=== PATIENT | male | born 1965 | race Caucasian/White ===

== ENCOUNTER 2016-12-05 11:44 | Outpatient (CLI) | END 2016-12-05 11:45 | disposition home or self-care (01) | LOC: AMBL 11:44 | PROVIDERS: ATTEND Internal Medicine | DX: S01.01XA Laceration without foreign body of scalp, initial encounter (principal); M54.2 Cervicalgia; R42 Dizziness and giddiness; R55 Syncope and collapse; I95.9 Hypotension, unspecified; W22.8XXA Striking against or struck by other objects, initial encounter; W19.XXXA Unspecified fall, initial encounter ==

== ENCOUNTER 2017-01-25 18:55 | Outpatient (CLI) | END 2017-01-25 18:56 | disposition home or self-care (01) | LOC: AMBL 18:55 | PROVIDERS: ATTEND Internal Medicine Geriatric Medicine | DX: S00.03XA Contusion of scalp, initial encounter (principal); W01.198A Fall on same level from slipping, tripping and stumbling with subsequent striking against other object, initial encounter; Y92.512 Supermarket, store or market as the place of occurrence of the external cause ==

== ENCOUNTER 2022-12-21 16:33 | Observation (INO) ==
--- NOTE | 2022-12-21 16:51 | ED.PDOC ---
General ED Provider: Dr. ESTELA REED DO Chief Complaint: Diabetes Stated Complaint: Patient is a 57 yo M here for medicaiont noncompliance and nausea Patietn arrives afebrile and vitally stable by POV with daughter SHe and he report he is noncompliant with insulin regiumen Daughter reports this happens often He reports nausea without chest or abdominal pain He has a PMHX of IDDM2 x 4 years, CHF. He is pleasant to speak with Amenable to labs and treatment THere home glucometer read too hih to count so they came in Time Seen by Provider: 12/21/22 16:39 Primary Care Provider: APURVA DIAS Nursing and Triage Documentation Reviewed and Agree: Yes Does patient meet sepsis criteria?: No System Inflammatory Response Syndrome: Not Applicable Sepsis Protocol: For patient's 13 years and over: Temp is 96.8 and below OR 101 and greater Pulse >90 BPM Resp >20/minute Acutely Altered Mental Status Are patient's symptoms suggestive of a new infection, such as: -Pneumonia -Skin, Soft Tissue -Endocarditis -UTI -Bone, Joint Infection -Implantable Device -Acute Abdominal Infection -Wound Infection -Meningitis -Blood Stream Catheter Infection -Unknown Review of Systems Review Of Systems Constitutional: Denies Diaphoresis or Malaise Eyes: Denies Blindness or Drainage Ears, Nose, Mouth, Throat: Denies Ear pain or Nose pain Respiratory: Denies Cough or Shortness of Breath Cardiac: Denies Chest pain or Lightheadedness GI: Reports Nausea; Denies Abdominal pain, Diarrhea or Vomiting : Denies Burning or Discharge Musculoskeletal: Denies Back pain or Joint pain Skin: Denies Bruising or Lesions Neurological: Denies Anxiety or Depressed Endocrine: Denies Excessive sweating or Flushing Hematologic/Lymphatic: Reports No symptoms All Other Systems: Reviewed and Negative Physical Exam Physical Exam Appearance: Reports Well-appearing, Well-nourished and Obese Ill-appearing: Not Applicable Pain Distress: Not Applicable Eyes: Reports BUCK, EOMI and Conjunctiva clear ENT: Reports Ears normal, Nose normal and Oropharynx normal Neck: Supple Respiratory: Reports Breath sounds clear Cardiovascular: Reports RRR, Pulses normal and No rub GI/: Reports Soft, Nontender and Other (Negative roberts/mcburney/no cva ttp, no fluid wave) Musculoskeletal: Reports Normal strength and ROM intact Skin: Reports Warm and Dry Neurological: Reports Sensation intact and Motor intact Psychiatric: Reports Affect appropriate and Mood appropriate Critical Care Note Critical Care Note Total Critical Care Time (mins): 0 Course Course 12/21/22 17:11 12/21/22 17:11 Orders, Labs, Meds: Lab Review 12/21/22 12/21/22 17:11 17:20 WBC 10.87 H RBC 4.74 Hgb 12.0 L Hct 38.0 L MCV 80.2 MCH 25.3 L MCHC 31.6 L RDW Coeff of Bhavna 18.2 H Plt Count 434 Immature Gran % (Auto) 0.3 Neut % (Auto) 49.1 Lymph % (Auto) 35.2 Bates % (Auto) 13.4 H Eos % (Auto) 1.4 Baso % (Auto) 0.6 Neut # (Auto) 5.3 Lymph # (Auto) 3.8 H Bates # (Auto) 1.5 Eos # (Auto) 0.2 Baso # (Auto) 0.1 Immature Gran # (Auto) 0.0 VBG pH 7.35 VBG pCO2 43 VBG pO2 49 H VBG HCO3 23.7 VBG O2 Saturation 82.0 H Sodium 131.3 L Potassium 4.51 Chloride 93.1 L Carbon Dioxide 23.0 Anion Gap 19.71 BUN 89.6 H* Creatinine 2.64 H Estimated GFR (MDRD) 25.00 BUN/Creatinine Ratio 33.93 Glucose 589.0 H* Lactic Acid 3.53 H Calcium 9.63 Total Bilirubin 0.70 AST 78.6 H ALT 48.2 Alkaline Phosphatase 370.8 H NT-Pro-B Natriuret Pep 812 H Total Protein 10.49 H Albumin 4.53 Globulin 5.96 Albumin/Globulin Ratio 0.76 Lipase 92.8 Urine Color Yellow Urine Clarity Clear Urine pH 5.5 Ur Specific [place] 1.010 Urine Protein Negative Urine Glucose (UA) 3+ H Urine Ketones Negative Urine Blood Negative Urine Nitrite Negative Urine Bilirubin Negative Urine Urobilinogen 0.2 Ur Leukocyte Esterase Negative Ur Squamous Epith Cells 2-5 Acetone, Qual None Orders Category Date Time Status OBSERVATION [PLACE PATIENT OBSERVATION] .TO MEDSURG ADMISSION 12/21/22 18:26 Ordered (NON-MONITORED BED) VBG DRAW REQUEST Stat CARDIO 12/21/22 16:44 Completed ACCUCHECK (ED) [ED ACCUCHECK ASSESSMENT] Q1HR EMERGENCY 12/21/22 18:25 Active ACETONE, QUALITATIVE Stat LAB 12/21/22 17:11 Completed CBC W/ AUTO DIFF Stat LAB 12/21/22 17:11 Completed COMPREHENSIVE METABOLIC PANEL Stat LAB 12/21/22 17:11 Completed FREE T4 (FREE THYROXINE) Stat LAB 12/21/22 17:11 Received LACTIC ACID Stat LAB 12/21/22 17:11 Completed LIPASE Stat LAB 12/21/22 17:11 Completed PROBNP ED [NT-PROBNP(ED)] Stat LAB 12/21/22 17:11 Completed URINALYSIS C & S IF INDICATED Stat LAB 12/21/22 17:20 Completed VBG [VENOUS BLOOD GAS] Stat LAB 12/21/22 17:20 Completed Insulin Regular, Human [Humulin R] Meds 12/21/22 18:11 Discontinued 9 unit IVP ONCE STA Sodium Chloride 0.9% [Sodium Chloride] 1,000 ml Meds 12/21/22 18:11 Active IV BOLUS Medications Generic Name Dose Route Start Last Admin Trade Name Freq PRN Reason Stop Dose Admin Sodium Chloride 1,000 mls @ 1,000 mls/hr 12/21/22 18:11 12/21/22 18:21 Sodium Chloride IV 12/21/22 19:10 1,000 mls/hr BOLUS STA Administration Discontinued Medications Generic Name Dose Route Start Last Admin Trade Name Freq PRN Reason Stop Dose Admin Insulin Human Regular 9 unit 12/21/22 18:11 12/21/22 18:19 Insulin Regular, Human 100 Unit/Ml (3ml) Vial 0.1 unit/kg (9 unit) 12/21/22 18:12 9 unit IVP Administration ONCE STA Vital Signs: Temp Pulse Resp BP Pulse Ox 12/21/22 16:45 97.7 F 77 18 122/74 98 MDM: Patient is a 57 yo M here for insulin noncompliance and nausea Patient afebrile and vitally stable Hx form patient and daughter chart review by me Exam reassuring 3+ labs and no images reviewed by me He has sugar 550+, VBG with pH 7.35 bun creatinine 89/2.64 was 80/2.6 last week at [facility], operated by [facility] Family requesting observation to address sugar/dehydration - they have str uggled at home WDX: hyperglycemia, elevated creatinine, nausea, anemia discomfort acute condition moderate complexity DDX: I considered DKA, shock, pancreatitis but these are less likely SDOH: Patient insured with PCP support Patient amenable to admission Passed PO and ambulation challenge 9 units of insulin and 500 ML NS bolus here Consults to Hospitalist team agree with observation Patient follows with [facility] team for future planning but could not remember the physicians name Discharge Plan Discharge Patient Disposition: PLACED OBSERVATION Discharge Problem: Acute dehydration, Acute hyperglycemia, Elevated lactic acid level Did you review [place] [employer] for ALL controlled substances?: Not Applicable ED Provider: ESTELA REED Physician Progress Note: []
[2022-12-21 17:22] LABS: BASOPHILS # (AUTO) 0.1 K/uL (0-0.2); BASOPHILS % (AUTO) 0.6 % (0.0-3.0); EOSINOPHILS # (AUTO) 0.2 K/ul (0.0-0.7); EOSINOPHILS % (AUTO) 1.4 % (0.0-7.0); IMMATURE GRANULOCYTE % (AUTO) 0.3 % (0.0-5.0); LYMPHOCYTES # (AUTO) 3.8 K/uL (0.60-3.4); LYMPHOCYTES % (AUTO) 35.2 (10.0-50.0); MEAN CORPUSCULAR HEMOGLOBIN 25.3 pg (27.0-31.0); MEAN CORPUSCULAR HGB CONC 31.6 (31.8-35.4); MEAN CORPUSCULAR VOLUME 80.2 fl (80.0-94.0); MONOCYTES # (AUTO) 1.5 K/uL (0.4-2.0); MONOCYTES % (AUTO) 13.4 (0-10); NEUTROPHILS # (AUTO) 5.3 K/ul (2.0-6.9); NEUTROPHILS % (AUTO) 49.1 % (42.2-75.2); PLATELET COUNT 434 10^3/uL (140-440); RDW COEFFICIENT OF VARIATION 18.2 % (11.6-14.8); RED BLOOD COUNT 4.74 10^6/ul (4.70-6.10); WHITE BLOOD COUNT 10.87 K/ul (4.2-10.2)
[2022-12-21 17:27] LABS: VBG HCO3 23.7 (22-26); VBG PH 7.35 (7.30-7.40)
[2022-12-21 17:36] LABS: ALANINE AMINOTRANSFERASE 48.2 U/L (0-50); ALBUMIN 4.53 g/dL (3.5-5.0); ALKALINE PHOSPHATASE 370.8 U/L (56-119); ASPARTATE AMINO TRANSFERASE 78.6 U/L (17-59); BILIRUBIN,TOTAL 0.7 mg/dL (0.2-1.3); CALCIUM 9.63 mg/dL (8.4-10.2); CHLORIDE 93.1 mmol/L (98-107); CREATININE 2.64 mg/dL (0.60-1.10); LIPASE 92.8 U/L (23-300); POTASSIUM 4.51 mmol/L (3.5-5.1); SODIUM 131.3 mmol/L (134.5-145); TOTAL PROTEIN 10.49 g/dL (6.3-8.2)
[2022-12-21 17:41] LABS: BILIRUBIN,URINE Negative (NEGATIVE); CLARITY,URINE Clear (CLEAR); COLOR,URINE Yellow (YELLOW); KETONES,URINE Negative (NEGATIVE); LEUKOCYTE ESTERASE ,URINE Negative (NEGATIVE); NITRITE,URINE Negative (NEGATIVE); PH,URINE 5.5 (5-9); PROTEIN,URINE Negative (NEGATIVE); URINE, BLOOD Negative (NEGATIVE); UROBILINOGEN,URINE 0.2 (0.2)
[2022-12-21 17:47] LABS: GLUCOSE, URINE (UA) 3+ (NEGATIVE)
[2022-12-21 18:00] LABS: BLOOD UREA NITROGEN 89.6 mg/dL (9-20)
[2022-12-21] MEDS ORDERED: SODIUM CHLORIDE 1,000 ML IV STA (18:11)
[2022-12-21] MEDS ORDERED: HUMULIN R IVP STA (18:11)
[2022-12-21] MEDS ORDERED: ZOFRAN 4 MG/2 ML IVP STA (18:43)
[2022-12-21] MEDS ORDERED: TYLENOL PO PRN (19:17)
[2022-12-21] MEDS ORDERED: ZOFRAN 4 MG/2 ML IVP PRN (19:21)
[2022-12-21 20:57] VITALS: BMI 29.0
[2022-12-21] MEDS: ZOLOFT PO SCH (21:00)
[2022-12-21] MEDS: XIFAXAN PO SCH (22:37)
[2022-12-21] MEDS: LACTULOSE PO SCH (22:38)
[2022-12-21] MEDS: LIPITOR PO SCH (22:38)
[2022-12-21] MEDS ORDERED: BUMEX PO SCH (23:00)
[2022-12-22 05:08] LABS: BASOPHILS # (AUTO) 0.1 K/uL (0-0.2); BASOPHILS % (AUTO) 0.4 % (0.0-3.0); EOSINOPHILS # (AUTO) 0.3 K/ul (0.0-0.7); EOSINOPHILS % (AUTO) 1.8 % (0.0-7.0); IMMATURE GRANULOCYTE % (AUTO) 0.2 % (0.0-5.0); LYMPHOCYTES # (AUTO) 5.4 K/uL (0.60-3.4); LYMPHOCYTES % (AUTO) 38.7 (10.0-50.0); MEAN CORPUSCULAR HEMOGLOBIN 24.9 pg (27.0-31.0); MEAN CORPUSCULAR HGB CONC 31.6 (31.8-35.4); MONOCYTES # (AUTO) 1.9 K/uL (0.4-2.0); MONOCYTES % (AUTO) 13.8 (0-10); NEUTROPHILS # (AUTO) 6.3 K/ul (2.0-6.9); NEUTROPHILS % (AUTO) 45.1 % (42.2-75.2); PLATELET COUNT 425 10^3/uL (140-440); RDW COEFFICIENT OF VARIATION 17.9 % (11.6-14.8); RED BLOOD COUNT 4.81 10^6/ul (4.70-6.10); WHITE BLOOD COUNT 14.02 K/ul (4.2-10.2)
[2022-12-22 05:21] LABS: ALANINE AMINOTRANSFERASE 45.8 U/L (0-50); ALBUMIN 4.43 g/dL (3.5-5.0); ALKALINE PHOSPHATASE 333.7 U/L (56-119); ASPARTATE AMINO TRANSFERASE 91.5 U/L (17-59); BILIRUBIN,TOTAL 0.99 mg/dL (0.2-1.3); CALCIUM 9.64 mg/dL (8.4-10.2); CARBON DIOXIDE 26.3 mmol/L (22-30.0); CHLORIDE 100.5 mmol/L (98-107); CREATININE 2.54 mg/dL (0.60-1.10); GLUCOSE 221.3 mg/dL (74-106); POTASSIUM 4.53 mmol/L (3.5-5.1); SODIUM 137.3 mmol/L (134.5-145); TOTAL PROTEIN 10.21 g/dL (6.3-8.2)
[2022-12-22 05:32] LABS: BLOOD UREA NITROGEN 91.4 mg/dL (9-20)
[2022-12-22] MEDS: PROTONIX PO SCH (05:46)
[2022-12-22] MEDS: HUMULIN R SUBCUT PRN ×3 (06:05→18:54)
[2022-12-22] MEDS ORDERED: SYNTHROID PO SCH (06:30)
[2022-12-22] MEDS ORDERED: BUMEX PO SCH (06:30)
[2022-12-22] MEDS ORDERED: ALDACTONE PO SCH (09:00)
[2022-12-22] MEDS: ASPIRIN CHEWABLE PO SCH (09:04)
[2022-12-22] MEDS: ALDACTONE PO SCH (09:04)
[2022-12-22] MEDS: XIFAXAN PO SCH ×2 (09:04→20:26)
[2022-12-22] MEDS: CREON DR 12,000 UNITS CAPSULE PO SCH ×4 (09:04→20:58)
[2022-12-22] MEDS: JARDIANCE PO SCH (09:05)
[2022-12-22] MEDS: TOPROL XL PO SCH (09:05)
[2022-12-22] MEDS: LACTULOSE PO SCH ×2 (09:05→20:26)
--- NOTE | 2022-12-22 10:35 | PCM ---
Date of Service Date Seen by Provider: 12/22/22 Time Seen by Provider: 08:45 Admit Day/Time Admission Date: 12/21/22 Reason for Admission Chief Complaint: HYPERGLYCEMIA Hospital Provider Hospital Provider: ZULLY PECK, [facility] Primary Care Physician Primary Care Physician: APURVA DIAS History of Present Illness History of Present Illness: 57 yo male presented to the ER with family with hyperglycemia. Family reports that they were checking patient's blood sugar and he was reading high. Upon arrival to the ER, blood glucose was 589. He was not found to be in DKA or HHS. He was given 9 units of insulin and brought him down to the 250s. He was admitted to observation for blood glucose management. Patient has a long standing history of liver failure and chronic kidney disease. He follows with specialists at [facility]. He is on transplant lists for his liver and kidneys but family reports he has not likely a candidate due to his other histories of CHF and diabetes. Sister in room reports that over the last couple weeks he has become more weak and falling asleep frequently. He currently administers all of his own medications and lives with his brother and great nephew. Sister reports concern of requiring more care than the family is capable of giving him and are aware that now he will need closer monitoring with his medications. States that he takes lactulose for the ammonia retention due to the liver failure and he does not take it appropriately and ends up lethargic and confused. Currently his ammonia is 46.89 which she reports is the best it has been in awhile but he stays anywhere from 40s-60s. At this time, patient is oriented to person and time. Disoriented to place and situation. Able to follow commands and answer some questions. States he feels more tired than he normally does. Denies any pain or complaints at this time. Case Discussed With Case Discussed With: Patient's case was discussed with the ER Physicians, Dr. Leary. [facility] Medical History (Updated 12/22/22 @ 10:27 by ZULLY PECK) CHF (congestive heart failure) I50.9 - Heart failure, unspecified (ICD-10) Chronic kidney disease N18.9 - Chronic kidney disease, unspecified (ICD-10) Confusion R41.0 - Disorientation, unspecified (ICD-10) Coronary artery disease I25.10 - Atherosclerotic heart disease of [place] coronary artery without angina pectoris (ICD-10) Depressed F32.A - Depression, unspecified (ICD-10) Diabetes E11.9 - Type 2 diabetes mellitus without complications (ICD-10) Hypercholesteremia E78.00 - Pure hypercholesterolemia, unspecified (ICD-10) Liver failure K72.90 - Hepatic failure, unspecified without coma (ICD-10) Nausea R11.0 - Nausea (ICD-10) Pancreatitis K85.90 - Acute pancreatitis without necrosis or infection, unspecified (ICD- 10) Surgical History (Updated 12/22/22 @ 10:28 by ZULLY PECK) Hx of CABG Z95.1 - Presence of aortocoronary bypass graft (ICD-10) Social History Smoking and tobacco status: Unknown if ever smoked Alcohol intake: unknown Allergies Allergies Allergy/AdvReac Type Severity Reaction Status Date / Time albumin colloid, human AdvReac Verified 12/21/22 17:06 Current Medications Home Medications aspirin 81 mg tablet,delayed release 81 mg PO QDAY 12/21/22 [History Confirmed 12/21/22 Last Taken Unknown] atorvastatin 10 mg tablet 5 mg PO .QD 12/21/22 [History Confirmed 12/21/22 Last Taken Unknown] bumetanide 1 mg tablet 1 mg PO .COMPLEX 12/21/22 [History Confirmed 12/21/22 Last Taken Unknown] bumetanide 1 mg tablet 1 mg PO .QD 12/21/22 [History Confirmed 12/21/22 Last Taken Unknown] empagliflozin 10 mg tablet (Jardiance) 10 mg PO .QD 12/21/22 [History Confirmed 12/21/22 Last Taken Unknown] insulin glargine 100 unit/mL (3 mL) subcutaneous pen (Basaglar KwikPen U-100 Insulin) 40 unit subcut QAM 12/21/22 [History Confirmed 12/21/22 Last Taken Unknown] insulin glargine-yfgn 100 unit/mL (3 mL) subcutaneous pen 15 unit subcut TID 12/21/22 [History Confirmed 12/21/22 Last Taken Unknown] lactulose 10 gram/15 mL oral solution 45 ml PO BID 12/21/22 [History Confirmed 12/21/22 Last Taken Unknown] levothyroxine 125 mcg tablet 250 mcg PO .QD 12/21/22 [History Confirmed 12/21/22 Last Taken Unknown] wmxgtm-wkkcmuxb-gvgmezp 36,000-114,000-180,000 unit capsule,delay rel 1 cap PO QID 12/21/22 [History Confirmed 12/21/22 Last Taken Unknown] metoprolol succinate 25 mg tablet,extended release 24 hr 25 mg PO .QD 12/21/22 [History Confirmed 12/21/22 Last Taken Unknown] pantoprazole 40 mg tablet,delayed release 40 mg PO .QD 12/21/22 [History Confirmed 12/21/22 Last Taken Unknown] rifaximin 550 mg tablet (Xifaxan) 550 mg PO BID 12/21/22 [History Confirmed 12/21/22 Last Taken Unknown] sertraline 50 mg tablet 50 mg PO QHS 12/21/22 [History Confirmed 12/21/22 Last Taken Unknown] spironolactone 25 mg tablet 12.5 mg PO .QD 12/21/22 [History Confirmed 12/21/22 Last Taken Unknown] Home Acetaminophen (Acetaminophen 325 Mg Tablet) 650 mg PO Q4H PRN PRN Reason: Mild Pain Aspirin (Aspirin 81 Mg Tab.Chew) 81 mg PO DAILYWM [facility] Last Admin: 12/22/22 09:04 Dose: 81 mg Atorvastatin Calcium (Atorvastatin Calcium 10 Mg Tablet) 5 mg PO BEDTIME [facility] Last Admin: 12/21/22 22:38 Dose: 5 mg Bumetanide (Bumetanide 1 Mg Tablet) 1 mg PO 3 TIMES PER WEEK [facility] Empagliflozin (Empagliflozin 10 Mg Tablet) 10 mg PO DAILY [facility] Last Admin: 12/22/22 09:05 Dose: 10 mg Insulin Human Regular (Insulin Regular, Human 100 Unit/Ml (3ml) Vial) 0 unit SUBCUT PRN PRN; Protocol PRN Reason: Hyperglycemia Last Admin: 12/22/22 10:48 Dose: 8 unit Lactulose (Lactulose 20 Gm/30 Ml Cup) 30 gm PO Q12HR [facility] Last Admin: 12/22/22 09:05 Dose: 30 gm Levothyroxine Sodium (Levothyroxine Sodium 100 Mcg Tablet) 100 mcg PO QDAC [facility] Levothyroxine Sodium (Levothyroxine Sodium 25 Mcg Tablet) 25 mcg PO QDAC [facility] Metoprolol Succinate (Metoprolol Succinate 25 Mg Tab.Er.24h) 25 mg PO DAILY [facility] Last Admin: 12/22/22 09:05 Dose: 25 mg Ondansetron HCl (Ondansetron Hcl/Pf 4 Mg/2 Ml Sdv) 4 mg IVP Q6H PRN PRN Reason: Nausea / Vomiting Pancrelipase (Lipase 12k/Protease 38k/Amylase 60k Capsule) 3 cap PO QID [facility] Last Admin: 12/22/22 09:04 Dose: 3 cap Pantoprazole Sodium (Pantoprazole Sodium 40 Mg Tablet.Dr) 40 mg PO QDAC [facility] Last Admin: 12/22/22 05:46 Dose: 40 mg Rifaximin (Rifaximin 550 Mg Tablet) 550 mg PO BID [facility] Stop: 12/24/22 21:59 Last Admin: 12/22/22 09:04 Dose: 550 mg Sertraline HCl (Sertraline Hcl 50 Mg Tablet) 50 mg PO BEDTIME [facility] Last Admin: 12/21/22 21:00 Dose: 50 mg Sodium Chloride (0.9% Sodium Chloride 10 Ml Disp.Syrin) 1 syr IVF Q8HR [facility] Last Admin: 12/22/22 05:02 Dose: 1 syr Spironolactone (Spironolactone 25 Mg Tablet) 12.5 mg PO DAILY [facility] Last Admin: 12/22/22 09:04 Dose: 12.5 mg Discontinued Medications Bumetanide (Bumetanide 1 Mg Tablet) 1 mg PO QDAC [facility] Bumetanide (Bumetanide 1 Mg Tablet) 1 mg PO .COMPLEX [facility] Sodium Chloride (Sodium Chloride) 1,000 mls @ 1,000 mls/hr IV BOLUS STA Stop: 12/21/22 19:10 Last Admin: 12/21/22 18:21 Dose: 1,000 mls/hr Insulin Human Regular (Insulin Regular, Human 100 Unit/Ml (3ml) Vial) 9 unit 0.1 unit/kg (9 unit) IVP ONCE STA Stop: 12/21/22 18:12 Last Admin: 12/21/22 18:19 Dose: 9 unit Levothyroxine Sodium (Levothyroxine Sodium 112 Mcg Tablet) 125 mcg PO QDAC [facility] Last Admin: 12/22/22 05:47 Dose: 125 mcg Ondansetron HCl (Ondansetron Hcl/Pf 4 Mg/2 Ml Sdv) 4 mg IVP ONCE STA Stop: 12/21/22 18:44 Last Admin: 12/21/22 18:46 Dose: 4 mg Spironolactone (Spironolactone 25 Mg Tablet) 25 mg PO DAILY [facility] Review of Systems Constitutional: Reports Fatigue Head: Reports Normocephalic and Atraumatic Eyes: Reports No symptoms Ears: Reports No symptoms Nose: Reports No symptoms Mouth: Reports No symptoms Throat: Reports No symptoms Cardiovascular: Reports No symptoms Respiratory: Reports No symptoms Gastrointestinal: Reports No symptoms Genitourinary: Reports No Symptoms Musculoskeletal: Reports No symptoms Endocrine: Reports No symptoms Hematology: Reports No symptoms Immunology: Reports No symptoms Neurological: Reports No symptoms Psychiatric: Reports No symptoms Physical examination Most Recent Vital Signs: Most Recent Vital Signs Temperature 98.0 F 12/22/22 05:11 Temperature Source Oral 12/22/22 05:11 Temperature Source Oral 12/21/22 16:45 Pulse Rate 78 12/22/22 08:00 Respiratory Rate 16 12/22/22 08:00 Blood Pressure 125/75 12/22/22 05:11 Blood Pressure Mean 91 12/22/22 05:11 Blood Pressure Left Arm 116/75 12/21/22 20:31 Blood Pressure Location Left Arm 12/22/22 05:11 Blood Pressure Position Supine 12/22/22 05:11 O2 Sat by Pulse Oximetry 99 12/22/22 05:11 Oxygen Delivery Method Room Air 12/22/22 08:00 Height 5 ft 10 in 12/21/22 20:31 Weight 202 lb 12/21/22 20:31 Appearance: Positive No Apparent Distress and Ill-Appearing Skin: Positive Jaundice and Warm HEENT: Positive Normocephalic, Oral Mucous Moist and PERRLA Neck: Positive Supple and Midline Trachea Chest/Lungs: Positive Symmetrical With Equal Breath Sounds, Clear to Auscultation Bilaterally and Good Air Movement all 4 Lung Manrique Heart: Positive RRR and Pulses Normal GI/: Positive Soft, Nontender, Bowel Sounds Normal and No Distention Musculoskeletal: Positive Not Examined Extremities: Positive Intact Peripheral Pulses, Stable Joints Without Laxity and Good ROM in All Joints Neurological: Positive Sensation Intact, Motor intact, Alert, Oriented and Other (generalized weakness) Psychiatric: Negative Oriented x4 (oriented x2 ) Labs This Visit Labs This Visit: Labs This Visit 12/21/22 12/21/22 12/21/22 17:11 17:20 19:40 WBC 10.87 H RBC 4.74 Hgb 12.0 L Hct 38.0 L MCV 80.2 MCH 25.3 L MCHC 31.6 L RDW Coeff of Bhavna 18.2 H Plt Count 434 Immature Gran % (Auto) 0.3 Neut % (Auto) 49.1 Lymph % (Auto) 35.2 Mcintosh % (Auto) 13.4 H Eos % (Auto) 1.4 Baso % (Auto) 0.6 Neut # (Auto) 5.3 Lymph # (Auto) 3.8 H Mcintosh # (Auto) 1.5 Eos # (Auto) 0.2 Baso # (Auto) 0.1 Immature Gran # (Auto) 0.0 VBG pH 7.35 VBG pCO2 43 VBG pO2 49 H VBG HCO3 23.7 VBG O2 Saturation 82.0 H Sodium 131.3 L Potassium 4.51 Chloride 93.1 L Carbon Dioxide 23.0 Anion Gap 19.71 BUN 89.6 H* Creatinine 2.64 H Estimated GFR (MDRD) 25.00 BUN/Creatinine Ratio 33.93 Glucose 589.0 H* Hemoglobin A1c 11.95 H Lactic Acid 3.53 H 4.44 H Calcium 9.63 Total Bilirubin 0.70 AST 78.6 H ALT 48.2 Alkaline Phosphatase 370.8 H Ammonia NT-Pro-B Natriuret Pep 812 H Total Protein 10.49 H Albumin 4.53 Globulin 5.96 Albumin/Globulin Ratio 0.76 Lipase 92.8 TSH 1.210 Free T4 2.29 H Urine Color Yellow Urine Clarity Clear Urine pH 5.5 Ur Specific [place] 1.010 Urine Protein Negative Urine Glucose (UA) 3+ H Urine Ketones Negative Urine Blood Negative Urine Nitrite Negative Urine Bilirubin Negative Urine Urobilinogen 0.2 Ur Leukocyte Esterase Negative Ur Squamous Epith Cells 2-5 Acetone, Qual None 12/22/22 12/22/22 04:44 07:40 WBC 14.02 H RBC 4.81 Hgb 12.0 L Hct 38.0 L MCV 79.0 L MCH 24.9 L MCHC 31.6 L RDW Coeff of Bhavna 17.9 H Plt Count 425 Immature Gran % (Auto) 0.2 Neut % (Auto) 45.1 Lymph % (Auto) 38.7 Mcintosh % (Auto) 13.8 H Eos % (Auto) 1.8 Baso % (Auto) 0.4 Neut # (Auto) 6.3 Lymph # (Auto) 5.4 H Mcintosh # (Auto) 1.9 Eos # (Auto) 0.3 Baso # (Auto) 0.1 Immature Gran # (Auto) 0.0 VBG pH VBG pCO2 VBG pO2 VBG HCO3 VBG O2 Saturation Sodium 137.3 Potassium 4.53 Chloride 100.5 Carbon Dioxide 26.3 Anion Gap 15.03 BUN 91.4 H* Creatinine 2.54 H Estimated GFR (MDRD) 26.00 BUN/Creatinine Ratio 35.98 Glucose 221.3 H D Hemoglobin A1c Lactic Acid Calcium 9.64 Total Bilirubin 0.99 AST 91.5 H ALT 45.8 Alkaline Phosphatase 333.7 H D Ammonia 46.8 H NT-Pro-B Natriuret Pep Total Protein 10.21 H Albumin 4.43 Globulin 5.78 Albumin/Globulin Ratio 0.76 Lipase TSH Free T4 Urine Color Urine Clarity Urine pH Ur Specific [place] Urine Protein Urine Glucose (UA) Urine Ketones Urine Blood Urine Nitrite Urine Bilirubin Urine Urobilinogen Ur Leukocyte Esterase Ur Squamous Epith Cells Acetone, Qual Imaging Imaging: None Review Statement Review Statement: I have independently reviewed and interpreted the labs/EKGs/imaging that were ordered by the ER provider. I have reviewed all outside records that are available currently in our EMR including imaging/notes/labs from previous visits. Plan Plan: 1. Hyperglycemia in setting of Type 2 Diabetes Mellitus - resolved, due to patient unable to administer appropriate dosing; q4H blood sugars throughout the night now accuchecks ACHS with ssi, continue home long acting insulin 2. CHF - chronic, does not appear in exacerbation, continue home medications, follows with CHF clinic 3. Chronic Kidney Disease - BUN/Creat at baseline, sees Nephrology at [facility], on transplant list and discussing dialysis, avoid nephrotoxins and hypotension if able 4. Liver Failure - chronic, ammonia level at baseline, continue lactulose 5. Hyponatremia - likely chronic due to CKD and CHF, monitor Discussed plan of care and any home needs with sister today. Hospice was discussed as well as home health. She plans to discuss with family what discharge plan is whether care is going to be continued or if they are going to do Hospice. Will have answers tomorrow and would like to talk with case management/social work. DVT Prophylaxis: HEATHER Time Spent: Greater than 80 minutes spent with patient, 50% of the time spent with this patient was devoted to counseling and coordination of care. Advanced Care Plannin minutes spent discussing advance care planning. Disposition: Admit to: Med/Surg Observation Full Code Discussed Plan of Care with Dr. Ted Renteria. Medications Medication Orders: Medications Ordered Category Date Time Status 0.9 % Sodium Chloride [Saline Flush] Meds 12/22/22 05:00 Active 1 syr IVF Q8HR Acetaminophen [Tylenol] Meds 12/21/22 19:17 Active 650 mg PO Q4H PRN Aspirin [Aspirin Chewable] Meds 12/22/22 08:30 Active 81 mg PO DAILYWM Atorvastatin Calcium [Lipitor] Meds 12/21/22 22:00 Active 5 mg PO BEDTIME Bumetanide [Bumex] Meds 12/23/22 06:30 Active 1 mg PO 3 TIMES PER WEEK Empaglifozin [Jardiance] Meds 12/22/22 09:00 Active 10 mg PO DAILY Insulin Regular, Human [Humulin R] Meds 12/21/22 19:17 Active See Protocol SUBCUT PRN PRN Lactulose Meds 12/21/22 22:00 Active 30 gm PO Q12HR Levothyroxine Sodium [Synthroid] Meds 12/23/22 06:30 Active 100 mcg PO QDAC Levothyroxine Sodium [Synthroid] Meds 12/23/22 06:30 Active 25 mcg PO QDAC Lipase/Protease/Amylase [Ino Frances 12,000 Units Capsule] Meds 12/22/22 09:00 Active 3 cap PO QID Metoprolol Succinate [Toprol Xl] Meds 12/22/22 09:00 Active 25 mg PO DAILY Ondansetron HCl/Pf [Zofran 4 mg/2 ml] Meds 12/21/22 19:21 Active 4 mg IVP Q6H PRN Pantoprazole Sodium [Protonix] Meds 12/22/22 06:30 Active 40 mg PO QDAC Rifaximin [Xifaxan] Meds 12/21/22 22:00 Active 550 mg PO BID Sertraline HCl [Zoloft] Meds 12/21/22 21:00 Active 50 mg PO BEDTIME Spironolactone [Aldactone] Meds 12/22/22 09:00 Active 12.5 mg PO DAILY
[2022-12-22] MEDS ORDERED: HUMULIN R SUBCUT ONE (14:11)
[2022-12-22] MEDS: LIPITOR PO SCH (20:26)
[2022-12-22] MEDS: ZOLOFT PO SCH (20:26)
[2022-12-22] MEDS ORDERED: HUMULIN R IVP STA (20:59)
[2022-12-22 21:26] LABS: CALCIUM 9.15 mg/dL (8.4-10.2); CARBON DIOXIDE 27.2 mmol/L (22-30.0); CREATININE 2.57 mg/dL (0.60-1.10); POTASSIUM 5.65 mmol/L (3.5-5.1); SODIUM 132.2 mmol/L (134.5-145)
[2022-12-22 21:27] LABS: BLOOD UREA NITROGEN 88.3 mg/dL (9-20); GLUCOSE 597.9 mg/dL (74-106)
[2022-12-23 05:27] LABS: BASOPHILS # (AUTO) 0.1 K/uL (0-0.2); BASOPHILS % (AUTO) 0.6 % (0.0-3.0); EOSINOPHILS # (AUTO) 0.3 K/ul (0.0-0.7); EOSINOPHILS % (AUTO) 2.1 % (0.0-7.0); HEMATOCRIT 38.1 % (42.0-52.0); IMMATURE GRANULOCYTE % (AUTO) 0.2 % (0.0-5.0); LYMPHOCYTES # (AUTO) 5.2 K/uL (0.60-3.4); LYMPHOCYTES % (AUTO) 41.4 (10.0-50.0); MEAN CORPUSCULAR HEMOGLOBIN 25.5 pg (27.0-31.0); MEAN CORPUSCULAR HGB CONC 31.5 (31.8-35.4); MEAN CORPUSCULAR VOLUME 80.9 fl (80.0-94.0); MONOCYTES # (AUTO) 1.7 K/uL (0.4-2.0); MONOCYTES % (AUTO) 13.2 (0-10); NEUTROPHILS # (AUTO) 5.4 K/ul (2.0-6.9); NEUTROPHILS % (AUTO) 42.5 % (42.2-75.2); PLATELET COUNT 403 10^3/uL (140-440); RDW COEFFICIENT OF VARIATION 18.6 % (11.6-14.8); RED BLOOD COUNT 4.71 10^6/ul (4.70-6.10); WHITE BLOOD COUNT 12.59 K/ul (4.2-10.2)
[2022-12-23 05:36] LABS: ALANINE AMINOTRANSFERASE 48.4 U/L (0-50); ALBUMIN 4.2 g/dL (3.5-5.0); ALKALINE PHOSPHATASE 331.3 U/L (56-119); ASPARTATE AMINO TRANSFERASE 93.5 U/L (17-59); BILIRUBIN,TOTAL 0.92 mg/dL (0.2-1.3); CALCIUM 9.22 mg/dL (8.4-10.2); CARBON DIOXIDE 25.2 mmol/L (22-30.0); CHLORIDE 99.4 mmol/L (98-107); CREATININE 2.38 mg/dL (0.60-1.10); GLUCOSE 424.2 mg/dL (74-106); POTASSIUM 4.97 mmol/L (3.5-5.1); SODIUM 133.5 mmol/L (134.5-145); TOTAL PROTEIN 10.01 g/dL (6.3-8.2)
[2022-12-23] MEDS: SYNTHROID PO SCH ×2 (05:37→05:38)
[2022-12-23] MEDS: PROTONIX PO SCH (05:37)
[2022-12-23 05:41] LABS: BLOOD UREA NITROGEN 87.3 mg/dL (9-20)
[2022-12-23] MEDS: HUMULIN R SUBCUT PRN (06:28)
[2022-12-23] MEDS ORDERED: BUMEX PO SCH (06:30)
[2022-12-23] MEDS ORDERED: LANTUS SUBCUT SCH (09:00)
[2022-12-23] MEDS: LACTULOSE PO SCH ×2 (09:22→20:15)
[2022-12-23] MEDS: ALDACTONE PO SCH (09:23)
[2022-12-23] MEDS: ASPIRIN CHEWABLE PO SCH (09:23)
[2022-12-23] MEDS: JARDIANCE PO SCH (09:23)
[2022-12-23] MEDS: XIFAXAN PO SCH ×2 (09:24→20:13)
[2022-12-23] MEDS: TOPROL XL PO SCH (09:24)
[2022-12-23] MEDS: CREON DR 12,000 UNITS CAPSULE PO SCH ×4 (09:24→20:12)
[2022-12-23] MEDS ORDERED: HUMULIN R SUBCUT ONE ×2 (10:28→12:40)
[2022-12-23] MEDS: BUMEX PO SCH (11:14)
--- NOTE | 2022-12-23 11:58 | DCSUM ---
Admission Date Admission Date: 12/21/22 Discharge Date Discharge Date: 12/23/22 Admission Diagnosis Admission Diagnosis: 1. Hyperglycemia in setting of uncontrolled DMT2 Discharge Diagnosis Discharge Diagnosis: 1. Hyperglycemia in setting of uncontrolled DMT2 - resolved, due to patient unable to administer appropriate dosing; q4H blood sugars throughout the night now accuchecks ACHS with ssi, continue home long acting insulin 2. CHF - chronic, does not appear in exacerbation, continue home medications, follows with CHF clinic 3. Chronic Kidney Disease - BUN/Creat at baseline, sees Nephrology at [facility], on transplant list and discussing dialysis, avoid nephrotoxins and hypotension if able 4. Liver Failure - chronic, ammonia level at baseline, continue lactulose 5. Hyponatremia - likely chronic due to CKD and CHF, monitor Hospital Provider Hospital Provider: NAMITA BUSBY PA-C, [facility] Primary Care Physician Primary Care Physician: APURVA DIAS Summary of History and Physical Summary of History and Physical: 57 yo male presented to the ER with family with hyperglycemia. Family reports that they were checking patient's blood sugar and he was reading high. Upon arrival to the ER, blood glucose was 589. He was not found to be in DKA or HHS. He was given 9 units of insulin and brought him down to the 250s. He was admitted to observation for blood glucose management. Patient has a long standing history of liver failure and chronic kidney disease. He follows with specialists at [facility]. He is on transplant lists for his liver and kidneys but family reports he has not likely a candidate due to his other histories of CHF and diabetes. Sister in room reports that over the last couple weeks he has become more weak and falling asleep frequently. He currently administers all of his own medications and lives with his brother and great nephew. Sister reports concern of requiring more care than the family is capable of giving him and are aware that now he will need closer monitoring with his medications. States that he takes lactulose for the ammonia retention due to the liver failure and he does not take it appropriately and ends up lethargic and confused. Currently his ammonia is 46.89 which she reports is the best it has been in awhile but he stays anywhere from 40s-60s. At this time, patient is oriented to person and time. Disoriented to place and situation. Able to follow commands and answer some questions. States he feels more tired than he normally does. Denies any pain or complaints at this time. Hospital Course Appearance: Pleasant, No Apparent Distress and Alert HEENT: MMM and Supple CVS: No Murmur, No Rubs and No Gallop Abdomen: Soft, Non-Tender and No Distention Respiratory: No Accessory Muscle Use Extremities: No Edema Additional Findings: Oriented x3 today. Vital Signs: Most Recent Vital Signs Temperature 97.6 F 12/23/22 10:00 Temperature Source Oral 12/23/22 10:00 Temperature Source Oral 12/21/22 16:45 Pulse Rate 66 12/23/22 10:00 Respiratory Rate 16 12/23/22 10:00 Blood Pressure 137/78 12/23/22 10:00 Blood Pressure Mean 97 12/23/22 10:00 Blood Pressure Left Arm 116/75 12/21/22 20:31 Blood Pressure Location Left Arm 12/23/22 10:00 Blood Pressure Position Supine 12/23/22 10:00 O2 Sat by Pulse Oximetry 100 12/23/22 10:00 Oxygen Delivery Method Room Air 12/23/22 10:00 Height 5 ft 10 in 12/21/22 20:31 Weight 202 lb 12/21/22 20:31 Lab Results Last 24 Hours: 12/23/22 12/22/22 12/22/22 04:59 20:45 20:45 WBC 12.59 H RBC 4.71 Hgb 12.0 L Hct 38.1 L MCV 80.9 MCH 25.5 L MCHC 31.5 L RDW Coeff of Bhavna 18.6 H Plt Count 403 Immature Gran % (Auto) 0.2 Neut % (Auto) 42.5 Lymph % (Auto) 41.4 [place] % (Auto) 13.2 H Eos % (Auto) 2.1 Baso % (Auto) 0.6 Neut # (Auto) 5.4 Lymph # (Auto) 5.2 H [place] # (Auto) 1.7 Eos # (Auto) 0.3 Baso # (Auto) 0.1 Immature Gran # (Auto) 0.0 Sodium 133.5 L 132.2 L Potassium 4.97 5.65 H Chloride 99.4 96.0 L Carbon Dioxide 25.2 27.2 Anion Gap 13.87 14.65 BUN 87.3 H* 88.3 H* Creatinine 2.38 H 2.57 H Estimated GFR (MDRD) 28.00 26.00 BUN/Creatinine Ratio 36.68 34.35 Glucose 424.2 H D 597.9 H* 600.6 H* D Calcium 9.22 9.15 Total Bilirubin 0.92 AST 93.5 H ALT 48.4 Alkaline Phosphatase 331.3 H Total Protein 10.01 H Albumin 4.20 Globulin 5.81 Albumin/Globulin Ratio 0.72 12/22/22 18:27 WBC RBC Hgb Hct MCV MCH MCHC RDW Coeff of Bhavna Plt Count Immature Gran % (Auto) Neut % (Auto) Lymph % (Auto) [place] % (Auto) Eos % (Auto) Baso % (Auto) Neut # (Auto) Lymph # (Auto) [place] # (Auto) Eos # (Auto) Baso # (Auto) Immature Gran # (Auto) Sodium Potassium Chloride Carbon Dioxide Anion Gap BUN Creatinine Estimated GFR (MDRD) BUN/Creatinine Ratio Glucose 536.1 H* D Calcium Total Bilirubin AST ALT Alkaline Phosphatase Total Protein Albumin Globulin Albumin/Globulin Ratio Discharge Instructions Discharge Planning: Discharge Planning > 80 minutes Discharge Medications: Medications at Discharge (Home Meds & RX) aspirin 81 mg tablet,delayed release 81 mg PO QDAY 12/21/22 atorvastatin 10 mg tablet 5 mg PO .QD 12/21/22 bumetanide 1 mg tablet 1 mg PO .COMPLEX 12/21/22 bumetanide 1 mg tablet 1 mg PO .QD 12/21/22 empagliflozin 10 mg tablet (Jardiance) 10 mg PO .QD 12/21/22 insulin glargine 100 unit/mL (3 mL) subcutaneous pen (Pardeepagllondon Dhaliwal U-100 Insulin) 40 unit subcut QAM 12/21/22 insulin glargine-yfgn 100 unit/mL (3 mL) subcutaneous pen 15 unit subcut TID 12/21/22 lactulose 10 gram/15 mL oral solution 45 ml PO BID 12/21/22 levothyroxine 125 mcg tablet 250 mcg PO .QD 12/21/22 qcaclx-hndmxcer-qgypggj 36,000-114,000-180,000 unit capsule,delay rel 1 cap PO QID 12/21/22 metoprolol succinate 25 mg tablet,extended release 24 hr 25 mg PO .QD 12/21/22 pantoprazole 40 mg tablet,delayed release 40 mg PO .QD 12/21/22 rifaximin 550 mg tablet (Xifaxan) 550 mg PO BID 12/21/22 sertraline 50 mg tablet 50 mg PO QHS 12/21/22 spironolactone 25 mg tablet 12.5 mg PO .QD 12/21/22 insulin aspart U-100 100 unit/mL (3 mL) subcutaneous pen (Novolog FlexPen U-100 Insulin aspart) 1 sliding scale dose subcut DIRECTED 12/23/22 Discharge Plan Discharge Discharge Orders: Discharge Patient (ONCE); Ordered 12/23/22 Ordered By: NAMITA BUSBY Activity Restrictions/Additional Instructions: DISCHARGE TO HOME DX: HYPERGLYCEMIA, LETHARGY F/U WITH PCP TODAY SCHEDULED DIET: DIABETIC ACTIVITY: TOLERATED, PT/OT RECOMMENDED F/U WITH PCP REGARDING SLIDING SCALE INSULIN YOU WERE REFERRED FOR HOME HEALTH AT YOUR REQUEST, [facility] HAS BEEN CONTACTED AND WILL BE IN TOUCH WITH YOU TO INITIATE SERVICES. THEIR NUMBER IS [phone]. YOU WERE PROVIDED WITH A LIST OF PRIVATE SITTERS FOR IN HOME ASSISTANCE Instructions: Diabetic Hyperglycemia (GEN), Hemoglobin A1c (GEN) Patient Disposition: HOME SELF-CARE Prescriptions: Continued atorvastatin 10 mg tablet 5 mg PO .QD aspirin 81 mg tablet,delayed release (DR/EC) 81 mg PO QDAY spironolactone 25 mg tablet 12.5 mg PO .QD pantoprazole 40 mg tablet,delayed release (DR/EC) 40 mg PO .QD levothyroxine 125 mcg tablet 250 mcg PO .QD bumetanide 1 mg tablet 1 mg PO .QD metoprolol succinate 25 mg tablet extended release 24 hr 25 mg PO .QD sertraline 50 mg tablet 50 mg PO QHS lactulose 10 gram/15 mL solution 45 ml PO BID Xifaxan 550 mg tablet 550 mg PO BID Jardiance 10 mg tablet 10 mg PO .QD zvdohv-yfkwvvic-ubovsig 36,000-114,000- 180,000 unit capsule,delayed release(DR/EC) 1 cap PO QID Rx Instructions: administer with meals and/or snacks insulin glargine [Basaglar KwikPen U-100 Insulin] 100 unit/mL (3 mL) insulin pen 40 unit subcut QAM insulin aspart U-100 [Novolog FlexPen U-100 Insulin] 100 unit/mL (3 mL) insulin pen 1 sliding scale dose subcut DIRECTED No Action insulin glargine-yfgn 100 unit/mL (3 mL) insulin pen 15 unit SUBCUT TID Rx Instructions: SS as needed - with meals bumetanide 1 mg tablet 1 mg PO .COMPLEX Rx Instructions: 1 mg orally Friday, Friday, Friday; Did you review [place] [employer] for ALL controlled substances?: Not Applicable Discussed opioids are addictive and Narcan is available by prescription or from pharmacy.: No Condition: Stable
[2022-12-23] MEDS ORDERED: HUMALOG SUBCUT STA (12:22)
[2022-12-23 14:06] LABS: CALCIUM 8.95 mg/dL (8.4-10.2); CARBON DIOXIDE 22.7 mmol/L (22-30.0); CHLORIDE 97.8 mmol/L (98-107); CREATININE 2.17 mg/dL (0.60-1.10); POTASSIUM 4.89 mmol/L (3.5-5.1); SODIUM 131.2 mmol/L (134.5-145)
--- NOTE | 2022-12-23 14:11 | PCM.PROG ---
Date/Time Seen Date Seen by Provider: 12/23/22 Time Seen by Provider: 08:30 Provider Provider: NAMITA BUSBY PA-C, [facility] Chief Complaint Chief Complaint: HYPERGLYCEMIA Subjective Subjective: Patient is feeling better today and at his baseline. Sister is at bedside. Discussed his CODE STATUS with him and he would like to continue to be a full code at this time. He is alert and oriented x3 today. He admits to being noncompliant with his insulin here and there. Regarding his sliding scale insulin he states that he was been doing 15 units of his short acting when his sugars greater than 200. If it is ever less than 200 he does not give anything. Per sister his sugars have been running very high for last several days. They are working on getting him more help in the home to ensure accurate dosing and timely dosing. Plan was to discharge today however his sugar is continuing to go up despite multiple doses of short acting Humalog. Objective Appearance: Positive No Apparent Distress, Alert and Oriented x3 and Other (+chronically ill appearing ) Chest/Lungs: Positive Symmetrical With Equal Breath Sounds and Clear to Auscultation Bilaterally Heart: Positive RRR GI/: Positive Soft, Nontender and Bowel Sounds Normal Neurological: Positive Cranial Nerves Intact, Alert, Oriented and Other (+generalized weakness ) Vital Signs Vital Signs: Vital Signs: Last 24 Hours 12/22/22 18:00 12/22/22 20:00 12/22/22 21:55 Temperature 95.9 F L 96.2 F L Temperature Source Temporal Artery Scan Temporal Artery Scan Pulse Rate 66 67 Respiratory Rate 14 18 Blood Pressure 134/74 112/61 Blood Pressure Mean 94 78 Blood Pressure Location Left Arm Left Arm Blood Pressure Position Supine Supine O2 Sat by Pulse Oximetry 100 99 Oxygen Delivery Method Room Air Room Air Room Air 12/23/22 01:44 12/23/22 05:19 12/23/22 10:00 Temperature 96.3 F L 96.8 F L 97.6 F Temperature Source Temporal Artery Scan Temporal Artery Scan Oral Pulse Rate 80 68 66 Respiratory Rate 18 18 16 Blood Pressure 139/77 138/78 137/78 Blood Pressure Mean 97 98 97 Blood Pressure Location Left Arm Left Arm Left Arm Blood Pressure Position Supine Supine Supine O2 Sat by Pulse Oximetry 99 100 100 Oxygen Delivery Method Room Air Room Air Room Air Lab Results Lab Results: Lab Results: Last 24 Hours 12/23/22 12/22/22 12/22/22 04:59 20:45 20:45 WBC 12.59 H RBC 4.71 Hgb 12.0 L Hct 38.1 L MCV 80.9 MCH 25.5 L MCHC 31.5 L RDW Coeff of Bhavna 18.6 H Plt Count 403 Immature Gran % (Auto) 0.2 Neut % (Auto) 42.5 Lymph % (Auto) 41.4 [place] % (Auto) 13.2 H Eos % (Auto) 2.1 Baso % (Auto) 0.6 Neut # (Auto) 5.4 Lymph # (Auto) 5.2 H [place] # (Auto) 1.7 Eos # (Auto) 0.3 Baso # (Auto) 0.1 Immature Gran # (Auto) 0.0 Sodium 133.5 L 132.2 L Potassium 4.97 5.65 H Chloride 99.4 96.0 L Carbon Dioxide 25.2 27.2 Anion Gap 13.87 14.65 BUN 87.3 H* 88.3 H* Creatinine 2.38 H 2.57 H Estimated GFR (MDRD) 28.00 26.00 BUN/Creatinine Ratio 36.68 34.35 Glucose 424.2 H D 597.9 H* 600.6 H* D Calcium 9.22 9.15 Total Bilirubin 0.92 AST 93.5 H ALT 48.4 Alkaline Phosphatase 331.3 H Total Protein 10.01 H Albumin 4.20 Globulin 5.81 Albumin/Globulin Ratio 0.72 12/22/22 18:27 WBC RBC Hgb Hct MCV MCH MCHC RDW Coeff of Bhavna Plt Count Immature Gran % (Auto) Neut % (Auto) Lymph % (Auto) [place] % (Auto) Eos % (Auto) Baso % (Auto) Neut # (Auto) Lymph # (Auto) [place] # (Auto) Eos # (Auto) Baso # (Auto) Immature Gran # (Auto) Sodium Potassium Chloride Carbon Dioxide Anion Gap BUN Creatinine Estimated GFR (MDRD) BUN/Creatinine Ratio Glucose 536.1 H* D Calcium Total Bilirubin AST ALT Alkaline Phosphatase Total Protein Albumin Globulin Albumin/Globulin Ratio Additional Comments Additional Comments: I have independently reviewed and interpreted the labs/EKGs/imaging ordered during this hospital stay. I have reviewed outside records that are available in our EMR that pertain to medical stay including imaging/notes/labs from previous visits. Active Medications Active Medications: Medications Generic Name Dose Route Start Last Admin Trade Name Patric PRN Reason Stop Dose Admin Acetaminophen 650 mg 12/21/22 19:17 Acetaminophen 325 Mg Tablet PO Q4H PRN Mild Pain Aspirin 81 mg 12/22/22 08:30 12/23/22 09:23 Aspirin 81 Mg Tab.Chew PO 81 mg DAILYWM BRENDA Administration Atorvastatin Calcium 5 mg 12/21/22 22:00 12/22/22 20:26 Atorvastatin Calcium 10 Mg Tablet PO 5 mg BEDTIME BRENDA Administration Bumetanide 1 mg 12/23/22 11:00 12/23/22 11:14 Bumetanide 1 Mg Tablet PO 1 mg DAILY BRENDA Administration Empagliflozin 10 mg 12/22/22 09:00 12/23/22 09:23 Empagliflozin 10 Mg Tablet PO 10 mg DAILY BRENDA Administration Insulin Glargine 40 unit 12/23/22 09:00 12/23/22 09:29 Insulin Glargine,Hum.Rec.Anlog 100 Units/Ml SUBCUT 40 unit QAM BRENDA Administration Lactulose 30 gm 12/21/22 22:00 12/23/22 09:22 Lactulose 20 Gm/30 Ml Cup PO 30 gm Q12HR BRENDA Administration Levothyroxine Sodium 100 mcg 12/23/22 06:30 12/23/22 05:38 Levothyroxine Sodium 100 Mcg Tablet PO 100 mcg QDAC BRENDA Administration Levothyroxine Sodium 25 mcg 12/23/22 06:30 12/23/22 05:37 Levothyroxine Sodium 25 Mcg Tablet PO 25 mcg QDAC BRENDA Administration Metoprolol Succinate 25 mg 12/22/22 09:00 12/23/22 09:24 Metoprolol Succinate 25 Mg Tab.Er.24h PO 25 mg DAILY BRENDA Administration Ondansetron HCl 4 mg 12/21/22 19:21 Ondansetron Hcl/Pf 4 Mg/2 Ml Sdv IVP Q6H PRN Nausea / Vomiting Pancrelipase 3 cap 12/22/22 09:00 12/23/22 12:16 Lipase 12k/Protease 38k/Amylase 60k Capsule PO 3 cap QID BRENDA Administration Pantoprazole Sodium 40 mg 12/22/22 06:30 12/23/22 05:37 Pantoprazole Sodium 40 Mg Tablet.Dr PO 40 mg QDAC BRENDA Administration Rifaximin 550 mg 12/21/22 22:00 12/23/22 09:24 Rifaximin 550 Mg Tablet PO 12/24/22 21:59 550 mg BID BRENDA Administration Sertraline HCl 50 mg 12/21/22 21:00 12/22/22 20:26 Sertraline Hcl 50 Mg Tablet PO 50 mg BEDTIME BRENDA Administration Sodium Chloride 1 syr 12/22/22 05:00 12/23/22 12:14 0.9% Sodium Chloride 10 Ml Disp.Syrin IVF Not Given Q8HR BRENDA Spironolactone 12.5 mg 12/22/22 09:00 12/23/22 09:23 Spironolactone 25 Mg Tablet PO 12.5 mg DAILY BRENDA Administration Plan Plan: 1. Hyperglycemia in setting of Type 2 Diabetes Mellitus - Uncontrolled. Continu ing to go up despite 40 units of short acting total today. BMP ordered. Once back will start on insulin drip until glucose <250. Make NPO. Continue home long acting insulin. Check CXR. 2. Grade II diastolic HF - chronic, does not appear in exacerbation, continue home medications, follows with CHF clinic 3. Chronic Kidney Disease - Improved. BUN/Creat at baseline, sees Nephrology at [facility], on transplant list and discussing dialysis, avoid nephrotoxins and hypotension if able 4. Liver Failure - chronic, ammonia level at baseline, continue lactulose and xifaxan 5. Hyponatremia - Improved. Likely pseudohyponatremia due to hyperglycemia. 6. Hypothyroidism - Continue home levothyroxine Echo last cardiology visit per [facility] Epiccarelink: Left ventricular systolic function is normal. Left ventricular ejection fraction appears to be 56 - 60%. Left ventricular diastolic function is consistent with (grade II w/high LAP) pseudonormalization. Left atrial volume is moderately increased. The right atrial cavity is moderately dilated. Moderate tricuspid valve regurgitation is present. Estimated right ventricular systolic pressure from tricuspid regurgitation is normal (<35 mmHg). Review Statement Review Statement: I have personally discussed and reviewed the patient's visit/currently la bs/imaging/decision making with Dr. Renteria, my supervising attending. Greater that 50 minutes spent with patient, 50% of the time spent with this patient was devoted to counseling and coordination of care.
[2022-12-23 14:24] LABS: BLOOD UREA NITROGEN 80.2 mg/dL (9-20); GLUCOSE 595.9 mg/dL (74-106)
[2022-12-23] MEDS ORDERED: MYXREDLIN 100 UNIT/100 ML BAG 100 UNIT/100 ML PLAST..BAG IV SCH (14:30)
--- NOTE | 2022-12-23 16:02 | DI ---
EXAM: CHEST RADIOGRAPH; SINGLE VIEW HISTORY: Hyperglycemia. COMPARISON: Chest radiograph 12/26/14. FINDINGS/IMPRESSION: Trachea is midline. Cardiomediastinal silhouette is within normal limits. Sternotomy wires. Lungs are clear. No pneumothorax or large pleural effusions. Osseous structures are intact.
[2022-12-23] MEDS ORDERED: K-DUR PO ONE ×2 (18:25→20:25)
[2022-12-23] MEDS: LIPITOR PO SCH (20:13)
[2022-12-23] MEDS: ZOLOFT PO SCH (20:13)
[2022-12-23 20:18] LABS: CALCIUM 9.06 mg/dL (8.4-10.2); CHLORIDE 97.3 mmol/L (98-107); CREATININE 2.26 mg/dL (0.60-1.10); GLUCOSE 349.7 mg/dL (74-106); POTASSIUM 4.27 mmol/L (3.5-5.1); SODIUM 134.6 mmol/L (134.5-145)
[2022-12-23 20:20] LABS: BLOOD UREA NITROGEN 80.1 mg/dL (9-20)
[2022-12-24 05:29] VITALS: BP 104/69; TEMP 96.8
[2022-12-24 05:37] LABS: CALCIUM 9.08 mg/dL (8.4-10.2); CARBON DIOXIDE 25.2 mmol/L (22-30.0); CHLORIDE 99.9 mmol/L (98-107); CREATININE 2.4 mg/dL (0.60-1.10); GLUCOSE 327.8 mg/dL (74-106); POTASSIUM 5.25 mmol/L (3.5-5.1); SODIUM 133.8 mmol/L (134.5-145)
[2022-12-24 05:43] LABS: BLOOD UREA NITROGEN 77.4 mg/dL (9-20)
[2022-12-24] MEDS: SYNTHROID PO SCH ×2 (06:03)
[2022-12-24] MEDS: PROTONIX PO SCH (06:04)
[2022-12-24] MEDS: HUMALOG SUBCUT PRN ×3 (06:04→10:09)
[2022-12-24 08:29] LABS: HEMATOCRIT 36.6 % (42.0-52.0); HEMOGLOBIN 11.3 g/dl (14.0-18.0); MEAN CORPUSCULAR HGB CONC 30.9 (31.8-35.4); PLATELET COUNT 411 10^3/uL (140-440); RDW COEFFICIENT OF VARIATION 18.8 % (11.6-14.8); RED BLOOD COUNT 4.52 10^6/ul (4.70-6.10); WHITE BLOOD COUNT 14.18 K/ul (4.2-10.2)
[2022-12-24] MEDS: LACTULOSE PO SCH (08:42)
[2022-12-24] MEDS: JARDIANCE PO SCH (08:43)
[2022-12-24] MEDS: CREON DR 12,000 UNITS CAPSULE PO SCH (08:43)
[2022-12-24] MEDS: ASPIRIN CHEWABLE PO SCH (08:43)
[2022-12-24] MEDS: TOPROL XL PO SCH (08:43)
[2022-12-24] MEDS: BUMEX PO SCH (08:43)
[2022-12-24] MEDS: XIFAXAN PO SCH (08:43)
[2022-12-24 08:44] LABS: ANISOCYTOSIS NOT PRESENT (NOT PRESENT)
[2022-12-24] MEDS: ALDACTONE PO SCH (08:44)
[2022-12-24] MEDS ORDERED: LANTUS SUBCUT SCH (09:00)
--- NOTE | 2022-12-24 10:26 | DCSUM ---
Admission Date Admission Date: 12/21/22 Discharge Date Discharge Date: 12/24/22 Admission Diagnosis Admission Diagnosis: 1. Hyperglycemia in setting of DMT2 and noncompliance Discharge Diagnosis Discharge Diagnosis: 1. Hyperglycemia in setting of uncontrolled Type 2 Diabetes Mellitus and noncompliance - Improved 2. Grade II diastolic HF - chronic, stable 3. Chronic Kidney Disease - chronic, stable 4. Liver Failure - chronic, stable 5. Hyponatremia - Improved 6. Hypothyroidism - chronic, stable 7. Medication noncompliance Hospital Provider Hospital Provider: NAMITA BUSBY PA-C, [facility] Primary Care Physician Primary Care Physician: APURVA DIAS Summary of History and Physical Summary of History and Physical: 57 yo male presented to the ER with family with hyperglycemia. Family reports that they were checking patient's blood sugar and he was reading high. Upon arrival to the ER, blood glucose was 589. He was not found to be in DKA or HHS. He was given 9 units of insulin and brought him down to the 250s. He was admitted to observation for blood glucose management. Patient has a long standing history of liver failure and chronic kidney disease. He follows with specialists at [facility]. He is on transplant lists for his liver and kidneys ([place]) but family reports he has not likely a candidate due to his other histories of CHF and diabetes. Sister in room reports that over the last couple weeks he has become more weak and falling asleep frequently. He currently administers all of his own medications and lives with his brother and great nephew. Sister reports concern of requiring more care than the family is capable of giving him and are aware that now he will need closer monitoring with his medications. States that he takes lactulose for the ammonia retention due to the liver failure and he does not take it appropriately and ends up lethargic and confused. Currently his ammonia is 46.89 which she reports is the best it has been in awhile but he stays anywhere from 40s-60s. At this time, patient is oriented to person and time. Disoriented to place and situation. Able to follow commands and answer some questions. States he feels more tired than he normally does. Denies any pain or complaints at this time. Hospital Course Subjective: UA and chest x-ray negative for infection. On 12/23 patient's mentation was at baseline. Sister was at bedside and felt he was baseline. He was able to answer all questions appropriately. We discussed his CODE STATUS and he would like to remain a full code at this time. His sugars had been treated with long- acting and short acting insulin. They were improved into the 400s. Plan was to discharge to home but this was delayed as his sugars continued to climb throughout the day despite multiple doses of short acting insulin. He ultimately was put on an insulin drip for several hours to bring it down. Blood sugar improved on day of discharge into the 300s which is likely his baseline. He is asymptomatic at this time. Sodium improved with correction of the hyperglycemia. Creatinine mildly improved and is at baseline. He has a follow- up with his PCP tomorrow. Per his sister she had recently filled his insulin which was due to be filled over a month ago. She thinks he is very inconsistent with administering his insulin. They are getting extra help in the home to make sure he gets this regularly and dosed appropriately. He has been on a very simplistic sliding scale of 15 units if over 200 otherwise no short acting with meals. We will do a more specific sliding scale since he is going to have extra help at home that is more aggressive as well. Discussed if he is consistently maxing out the sliding scale with meals that they need to call their PCP to adjust the dosage. Keep a snack nearby to avoid hypoglycemia. Increased basaglar from 40 to 50 units in AM. Patient and sister agree to plan of care. Appearance: Pleasant, No Apparent Distress, Alert and Other (+chronically ill appearing ) HEENT: MMM and Supple CVS: No Murmur Abdomen: Soft, Non-Tender and No Distention Respiratory: No Accessory Muscle Use Extremities: No Edema Vital Signs: Most Recent Vital Signs Temperature 96.8 F L 12/24/22 05:27 Temperature Source Temporal Artery Scan 12/24/22 05:27 Temperature Source Oral 12/21/22 16:45 Pulse Rate 62 12/24/22 05:27 Respiratory Rate 16 12/24/22 05:27 Blood Pressure 104/69 12/24/22 05:27 Blood Pressure Mean 80 12/24/22 05:27 Blood Pressure Left Arm 116/75 12/21/22 20:31 Blood Pressure Location Right Arm 12/24/22 05:27 Blood Pressure Position Supine 12/24/22 05:27 O2 Sat by Pulse Oximetry 99 12/24/22 05:27 Oxygen Delivery Method Room Air 12/24/22 05:27 Height 5 ft 10 in 12/21/22 20:31 Weight 202 lb 12/21/22 20:31 Telemetry Type Remote Telemetry 12/24/22 07:00 Telemetry Monitoring Continues 12/24/22 07:00 Telemetry Heart Rate 68 12/24/22 07:00 EKG VA Interval 0.15 12/24/22 07:00 EKG QRS Interval 0.09 12/24/22 07:00 EKG QT Interval 0.40 12/24/22 01:00 Telemetry Strip Reading NSR 12/24/22 07:00 Imaging: EXAM: CHEST RADIOGRAPH; SINGLE VIEW HISTORY: Hyperglycemia. COMPARISON: Chest radiograph 12/26/14. FINDINGS/IMPRESSION: Trachea is midline. Cardiomediastinal silhouette is within normal limits. Sternotomy wires. Lungs are clear. No pneumothorax or large pleural effusions. Osseous structures are intact. Lab Results Last 24 Hours: 12/24/22 12/23/22 12/23/22 05:10 20:05 13:46 WBC 14.18 H RBC 4.52 L Hgb 11.3 L Hct 36.6 L MCV 81.0 MCH 25.0 L MCHC 30.9 L RDW Coeff of Bhavna 18.8 H Plt Count 411 Neutrophils % (Manual) 56.0 Lymphocytes % (Manual) 38.0 Monocytes % (Manual) 5.0 Eosinophils % (Manual) 1.0 Anisocytosis Not present Sodium 133.8 L 134.6 131.2 L Potassium 5.25 H 4.27 4.89 Chloride 99.9 97.3 L 97.8 L Carbon Dioxide 25.2 28.0 22.7 Anion Gap 13.95 13.57 15.59 BUN 77.4 H* 80.1 H* 80.2 H* Creatinine 2.40 H 2.26 H 2.17 H Estimated GFR (MDRD) 28.00 30.00 31.00 BUN/Creatinine Ratio 32.25 35.44 36.95 Glucose 327.8 H 349.7 H D 595.9 H* D Calcium 9.08 9.06 8.95 Discharge Instructions Discharge Planning: Discharge Planning > [address] Hina Renteria. Discharge Medications: Medications at Discharge (Home Meds & RX) aspirin 81 mg tablet,delayed release 81 mg PO QDAY 12/21/22 atorvastatin 10 mg tablet 5 mg PO .QD 12/21/22 bumetanide 1 mg tablet 1 mg PO .QD 12/21/22 empagliflozin 10 mg tablet (Jardiance) 10 mg PO .QD 12/21/22 lactulose 10 gram/15 mL oral solution 45 ml PO BID 12/21/22 levothyroxine 125 mcg tablet 250 mcg PO .QD 12/21/22 htfpyu-vbwvjpyk-aoclctx 36,000-114,000-180,000 unit capsule,delay rel 1 cap PO QID 12/21/22 metoprolol succinate 25 mg tablet,extended release 24 hr 25 mg PO .QD 12/21/22 pantoprazole 40 mg tablet,delayed release 40 mg PO .QD 12/21/22 rifaximin 550 mg tablet (Xifaxan) 550 mg PO BID 12/21/22 sertraline 50 mg tablet 50 mg PO QHS 12/21/22 spironolactone 25 mg tablet 12.5 mg PO .QD 12/21/22 insulin aspart U-100 100 unit/mL (3 mL) subcutaneous pen (Novolog FlexPen U-100 Insulin aspart) 1 sliding scale dose subcut DIRECTED 12/23/22 insulin glargine 100 unit/mL (3 mL) subcutaneous pen (Basaglar KwikPen U-100 Insulin) 50 unit (0.5 mL) subcut QAM #3 mL 12/24/22 Discharge Plan Discharge Activity Restrictions/Additional Instructions: DISCHARGE TO HOME DX: HYPERGLYCEMIA, LETHARGY F/U WITH PRIMARY CARE PROVIDER SCHEDULED DIET: DIABETIC ACTIVITY: TOLERATED, PT/OT RECOMMENDED F/U WITH PCP Sliding scale example given below: Glucose 0-140 ------ No Insulin Glucose 141-200 ---- 6units Glucose 201-260 ---- 10units Glucose 261-320 ---- 15units Glucose 321-400 ---- 20units Glucose over 400 --- 20units and Call Physician for further dosing Keep log of sugars, if regularly giving 15-20 units of novolog with meals, please call PCP for adjustment of your scale. Keep snacks nearby in case of any low blood sugars CONTINUE TAKING YOUR HOME MEDICATIONS; ONLY CHANGE IS SLIDING SCALE ABOVE YOU WERE REFERRED FOR HOME HEALTH AT YOUR REQUEST, [facility] HAS BEEN CONTACTED AND WILL BE IN TOUCH WITH YOU TO INITIATE SERVICES. THEIR NUMBER IS [phone]. YOU WERE PROVIDED WITH A LIST OF PRIVATE SITTERS FOR IN HOME ASSISTANCE Instructions: Diabetic Hyperglycemia (GEN), Hemoglobin A1c (GEN) Care Plan Goals: Problem: Altered Blood Glucose Level Goal: Maintain blood glucose level Within Normal Limits Instructions: Diet as ordered Diet consult if indicated Monitor accucheck levels Monitor signs/symptoms of altered glucose Patient Disposition: HOME SELF-CARE Prescriptions: Continued atorvastatin 10 mg tablet 5 mg PO .QD aspirin 81 mg tablet,delayed release (DR/EC) 81 mg PO QDAY spironolactone 25 mg tablet 12.5 mg PO .QD pantoprazole 40 mg tablet,delayed release (DR/EC) 40 mg PO .QD levothyroxine 125 mcg tablet 250 mcg PO .QD bumetanide 1 mg tablet 1 mg PO .QD metoprolol succinate 25 mg tablet extended release 24 hr 25 mg PO .QD sertraline 50 mg tablet 50 mg PO QHS lactulose 10 gram/15 mL solution 45 ml PO BID Xifaxan 550 mg tablet 550 mg PO BID Jardiance 10 mg tablet 10 mg PO .QD bvpbev-fwtusiig-wsprnkz 36,000-114,000- 180,000 unit capsule,delayed release(DR/EC) 1 cap PO QID Rx Instructions: administer with meals and/or snacks insulin aspart U-100 [Novolog FlexPen U-100 Insulin] 100 unit/mL (3 mL) insulin pen 1 sliding scale dose subcut DIRECTED Changed insulin glargine [Basaglar KwikPen U-100 Insulin] 100 unit/mL (3 mL) insulin pen 50 unit subcut QAM Qty: 3 0RF Discontinued insulin glargine-yfgn 100 unit/mL (3 mL) insulin pen 15 unit SUBCUT TID Rx Instructions: SS as needed - with meals bumetanide 1 mg tablet 1 mg PO .COMPLEX Rx Instructions: 1 mg orally Friday, Friday, Friday; Did you review [place] [employer] for ALL controlled substances?: Not Applicable Discussed opioids are addictive and Narcan is available by prescription or from pharmacy.: No Condition: Stable
[2022-12-24 11:40] VITALS: PULSE 68; RESP 18
== END 2022-12-24 11:20 | disposition home or self-care (01) ==
LOC: ED 16:33 → MEDSURG B 16:33
PROVIDERS: ADMIT Hospitalist; ATTEND Physician Assistant
DX: E03.9 Hypothyroidism, unspecified; I50.32 Chronic diastolic (congestive) heart failure; E87.1 Hypo-osmolality and hyponatremia; Z51.81 Encounter for therapeutic drug level monitoring; E86.0 Dehydration; E11.65 Type 2 diabetes mellitus with hyperglycemia; Z91.199 Patient's noncompliance with other medical treatment and regimen due to unspecified reason; Z79.4 Long term (current) use of insulin; N18.9 Chronic kidney disease, unspecified; K72.10 Chronic hepatic failure without coma; R74.02 Elevation of levels of lactic acid dehydrogenase [LDH]